=== PATIENT | male | born 1955 | race Caucasian/White ===

== ENCOUNTER → 2020-03-21 14:18 | Outpatient (CLI) | payer MEDICARE, SELFPAY ==
--- NOTE | ~2020-03-21 | MR_ITS ---
EXAMINATION: MR lumbar spine wo con EXAM DATE: 03/21/2020 15:15 INDICATION: Dorsalgia. Low back pain. TECHNIQUE: Multi-sequential, multiplanar MR images of the lumbar spine were obtained without contrast . Sagittal T1, T2, T2 fat saturation images. Axial T2 weighted images. Comparison is made to prior examination from 07/20/2017. FINDINGS: There is severe disc disease at L2-3, moderate to severe disc disease at the other lumbar l evels. The conus medullaris terminates at the L1/2 level and has normal signal intensity and morpholo gy. There is 4 mm retrolisthesis L2 on L3, L3 on L4, 3 mm retrolisthesis L4 on L5 and L5 on S1. Surg ical changes posterior to L1, L2, L3 and L4. Mild compression fractures at the L2-3 endplates, with e jean, acute or subacute. Mild diffuse loss of lumbar vertebral body heights. Level by level evaluation: T12-L1: There is a minimal diffuse disc bulge. Facet arthropathy: Mild. Neural foraminal stenosis: No stenosis. Central canal stenosis: No stenosis. L1-L2: There is a moderate diffuse disc bulge. Facet arthropathy: Mild to moderate. Neural foraminal stenosis: Mild to moderate bilateral. Central canal stenosis: Mild, posterior decompression from laminectomies. L2-L3: There is a large diffuse disc bulge. Facet arthropathy: Moderate. Neural foraminal stenosis: Moderate left, mild to moderate right. Central canal stenosis: Moderate, left hemilaminectomy. L3-L4: There is a large diffuse disc bulge. Facet arthropathy: Moderate. Neural foraminal stenosis: Moderate to severe bilateral. Central canal stenosis: Moderate to severe. L4-L5: There is a moderate to large diffuse disc bulge. Facet arthropathy: Moderate. Neural foraminal stenosis: Severe bilateral. Central canal stenosis: Moderate. L5-S1: There is a moderate diffuse disc bulge. Facet arthropathy: Moderate. Neural foraminal stenosis: Moderate to severe bilateral. Central canal stenosis: Moderate. Compared to prior study, there has been improvement in the central canal stenosis at L4-5, likely fol lowing laminotomies. Slight improvement at the level above as well. Mild progression in the disc dise ase and lower lumbar neural foraminal stenosis. IMPRESSION: 1. L3-4 moderate to severe central canal stenosis. 2. L4-5 severe bilateral neural foraminal stenosis. 3. Advanced lumbar spondylosis. Reviewed, dictated and finalized at location [facility].
== END ==
PROVIDERS: PCP Internal Medicine; Visit Provider Internal Medicine
DX: M54.9 Dorsalgia, unspecified (principal); M48.061 Spinal stenosis, lumbar region without neurogenic claudication; M47.816 Spondylosis without myelopathy or radiculopathy, lumbar region
CPT/HCPCS: 72148

== ENCOUNTER → 2020-06-25 14:08 | Outpatient (CLI) | payer MEDICARE, SELFPAY ==
--- NOTE | ~2020-06-25 | CT_ITS ---
EXAMINATION: CT chest wo con DATE: 06/25/2020 14:22 INDICATION: Pulmonary nodule TECHNIQUE: Computed tomography (CT) of the chest was performed without intravenous contrast. Automate d exposure control and iterative reconstruction technique were employed. Exam dose: 295.05 mGy-cm to alicia exam DLP. COMPARISON: 05/16/2019, 01/24/2018 CT chest high resolution scan 12/02/2017 two-view chest FINDINGS: There are multiple scattered groundglass focal ill-defined infiltrates of variable size, wi th involvement of both upper lobes, including lingula, as well and both lower lobes. These are new fi ndings since 06/04/2019. Differential diagnosis includes subacute extrinsic allergic alveolitis, Pneu mocystis carinii pneumonia, desquamative interstitial pneumonia, nonspecific interstitial pneumonia, idiopathic pulmonary hemorrhage and edema and lymphocytic interstitial pneumonia. Stable 3 mm right lower lobe and 4 mm middle lobe nodular densities since 05/16/2019 (series 4 image 8 6). No interval pulmonary mass lesion is detected. Previously reported 3.5 x 1.9 x 3.7 cm rim calcified anterior mediastinal mass and 10 mm peripherally calcified mass anterior mediastinal mass are stable and unchanged since 05/16/2019, previously report ed to be most likely thymic cyst or chronic hematomas. No interval hilar or mediastinal mass lesion or lymphadenopathy. Normal heart size. Trace pericardial fluid. No pleural effusion. Small sliding hiatal hernia. No suspicious osteolytic or osteoblastic lesions are noted. Diffuse idiopathic skeletal hyperostosis of the thoracic spine. IMPRESSION: Stable calcified anterior mediastinal masses since 05/16/2019 Stable 3 mm right lower lobe and 4 mm middle lobe nodular density since 05/16/2019 Scattered new bilateral upper and lower lobe ill-defined patchy groundglass infiltrates; differentia l diagnosis is given above Reviewed, dictated and finalized at [facility]. Reviewed, dictated and finalized at location [facility]. [employer] IMPRESSION: Stable calcified anterior mediastinal masses since 05/16/2019 Stable 3 mm right lower lobe and 4 mm middle lobe nodular density since 05/16/20 19 Scattered new bilateral upper and lower lobe ill-defined patchy groundglass in filtrates; differential diagnosis is given above
== END ==
PROVIDERS: Visit Provider Nurse Practitioner Family
DX: R91.8 Other nonspecific abnormal finding of lung field (principal)
CPT/HCPCS: 71250

== ENCOUNTER → 2020-09-24 12:43 | Outpatient (CLI) | payer MEDICARE, SELFPAY ==
--- NOTE | ~2020-09-24 | CT_ITS ---
EXAMINATION: CT diagnostic chest wo con DATE: 09/24/2020 13:10 INDICATION: Pulmonary nodules TECHNIQUE: Computed tomography (CT) of the chest was performed without intravenous contrast. The dose -length product was 660.65 mGy-cm. Automated exposure control and iterative reconstruction technique were employed. COMPARISON: CT dated 06/25/2020, 05/16/2019 and 01/24/2018 FINDINGS: Stable anterior mediastinal mass which is peripherally calcified, most likely benign. No si gnificant pleural or pericardial effusion. No thoracic lymphadenopathy. Heart size normal. The upper abdomen is unremarkable. There is a 6 mm right lower lobe nodule at the pleural surface, image 63. Th is is not significantly changed compared with CT dated 06/25/2020. No pneumothorax. No endobronchial lesions. 4 mm right middle lobe nodule is stable dating back to 01/24/2018. IMPRESSION: 1. Small right lung nodules, largest measuring 6 mm in the right lower lobe, stable compared with 05/2020. Six-month follow-up low dose CT recommended. 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 Reviewed, dictated and finalized at location B. [employer] IMPRESSION: 1. Small right lung nodules, largest measuring 6 mm in the right lower lobe, st able compared with 06/25/2020. Six-month follow-up low dose CT recommended. 2: Stable anterior mediastinal masses with peripheral calcifications, likely b enign thymic cysts or chronic hematomas.
== END ==
PROVIDERS: PCP Internal Medicine; Visit Provider Nurse Practitioner Family
DX: R91.8 Other nonspecific abnormal finding of lung field (principal)
CPT/HCPCS: 71250

== ENCOUNTER → 2021-03-24 13:05 | Outpatient (CLI) | payer MEDICARE, SELFPAY ==
--- NOTE | ~2021-03-24 | CT_ITS ---
EXAMINATION: CT diagnostic chest wo con DATE: 03/24/2021 13:20 INDICATION: R91.1 - Solitary pulmonary nodule TECHNIQUE: Computed tomography (CT) of the chest was performed without intravenous contrast. Addition al 3D reconstructions utilizing coronal maximum intensity projection (MIP) were performed. Automated exposure control and iterative reconstruction technique were employed. The dose-length product was 33 8.99 mGy-cm. COMPARISON: 09/24/2020 and 01/24/2018 FINDINGS: 5 mm pleural-based nodule in the right lower lobe and 3 mm right middle lobe nodule, both unchanged s yoly 01/24/2018. A few tiny calcified nodules at the posterior sulcus of the left lower lobe consisten t with old granulomatous disease. No new or enlarging pulmonary nodules. No pneumonia, pulmonary silvia a or pleural effusion. Heart size is normal. Atherosclerotic coronary artery calcific location. No pe ricardial effusion. None 3.3 x 1.6 cm peripherally calcified anterior mediastinal mass in the region of the thymic bed which is unchanged since 2018 consistent with a benign etiology most likely periphe rally calcified thymic cyst. No pathologically enlarged thoracic lymphadenopathy. Thoracic aorta is n ormal in caliber. Visualized upper abdomen is unremarkable. There are bridging osteophytes at multipl e levels in the spine, consistent with diffuse idiopathic skeletal hyperostosis (DISH). IMPRESSION: 1. No interval change since 2018 in a few calcified and noncalcified granulomata in the bilateral riaz gs. No other new or enlarging pulmonary nodules to require additional follow-up. 2. 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 Reviewed, dictated and finalized at location A. IMPRESSION: 1. No interval change since 2018 in a few calcified and noncalcified granulomat a in the bilateral lungs. No other new or enlarging pulmonary nodules to requir e additional follow-up. 2. 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
== END ==
PROVIDERS: PCP Internal Medicine; Visit Provider Nurse Practitioner Family
DX: R91.1 Solitary pulmonary nodule (principal); R91.8 Other nonspecific abnormal finding of lung field
CPT/HCPCS: 71250

== ENCOUNTER 2021-11-14 13:09 | Outpatient (CLI) | payer MEDICARE, SELFPAY ==
--- NOTE | ~2021-11-14 | US_ITS ---
EXAMINATION: US venous doppler [facility] DATE: 11/14/2021 14:24 INDICATION: Right lower limb swelling TECHNIQUE: Grayscale ultrasound images without and with compression and Doppler ultrasound images of the bilateral lower extremity veins were obtained. COMPARISON: None. FINDINGS: The visualized portions of right common femoral vein, profunda (deep) femoral vein, femoral vein, pop liteal vein, posterior tibial veins, peroneal veins, gastrocnemius vein and greater saphenous vein ou tflow are patent. The visualized portions of left common femoral vein, profunda femoral vein, femoral vein, popliteal v ein, posterior tibial veins, peroneal veins, gastrocnemius vein and greater saphenous vein outflow ar e patent. IMPRESSION: 1. No deep venous thrombosis in either lower limb. Reviewed, dictated and finalized at location A.
== END 2021-11-14 13:10 | disposition home or self-care (01) ==
LOC: ANHIMG 13:11
PROVIDERS: PCP Internal Medicine; Visit Provider Internal Medicine
DX: R22.40 Localized swelling, mass and lump, unspecified lower limb (principal); M79.89 Other specified soft tissue disorders
CPT/HCPCS: 93970